=== PATIENT | female | born 1995 | race Hispanic/Latino ===

== ENCOUNTER 2020-09-30 02:17 | Emergency (ER) | payer SELFPAY ==
[~2020-09-30] VITALS: Ht 167.6 cm; Wt 80.7 kg
[2020-09-30] MEDS ORDERED: SODIUM CHLORIDE 0.9% 1000ML 1,000 ML IV STA (02:47)
[2020-09-30] MEDS ORDERED: SODIUM CHLORIDE 0.9% 1000ML 1,000 ML ONE (03:09)
[2020-09-30] MEDS ORDERED: DICYCLOMINE HCL10 MG PO (04:11)
[2020-09-30 04:24] VITALS: BP 115/72
== END 2020-09-30 04:24 | disposition home or self-care (01) ==
LOC: FSED 02:44
DX: R10.31 Right lower quadrant pain (principal); E11.65 Type 2 diabetes mellitus with hyperglycemia
CPT/HCPCS: 74176; 80048; 81003; 81025; 82948; 85025; 99284; J7030